=== PATIENT | female | born 2000 | race African-American/Black ===

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

== ENCOUNTER 2020-03-06 14:25 | Emergency (ER) | payer MEDICAID ==
[~2020-03-06] VITALS: Ht 167.6 cm; Wt 69.5 kg
[2020-03-06 14:41] VITALS: BP 116/71; TEMP 97.6
[2020-03-06 15:26] LABS: BASO % 0.5 % (0.0-2.0); EOS # 0.1 (0.0-0.7); EOS % 1.4 % (0-4.0); GRAN # 4.5 (1.4-6.5); GRAN % 52.2 % (42.2-75.2); HEMATOCRIT 39.6 % (35.0-45.0); HEMOGLOBIN 13.2 g/dl (12.0-15.0); LYMPH # 2.9 (1.2-3.4); MEAN CELL VOLUME 87 fl (80.0-95.0); MEAN CORPUSCULAR HEMOGLOBIN 29 pg (26.0-32.0); MEAN CORPUSCULAR HGB CONC 33 g/dl (33.0-37.0); MEAN PLATELET VOLUME 8.6 fl (7.4-10.4); MONO % 11.7 % (1.7-9.3); PLATELET COUNT 369 K/mm3 (130-400); RED BLOOD COUNT 4.55 M/mm3 (4.10-5.30); REDCELL DISTRIBUTION WIDTH-CV 13.5 % (11.5-14.5)
[2020-03-06 17:33] VITALS: PULSE 98
== END 2020-03-06 17:31 | disposition home or self-care (01) ==
LOC: COL.ER 14:25
PROVIDERS: Nurse Practitioner Primary Care
DX: O20.0 Threatened abortion (principal); Z3A.12 12 weeks gestation of pregnancy; Z79.82 Long term (current) use of aspirin